=== PATIENT | male | born 1995 | race Caucasian/White ===

== ENCOUNTER 2017-04-07 10:34 | Emergency (ER) | payer BC, OTHER ==
--- NOTE | 2017-04-07 11:23 | ERPHSYRPT ---
- History of Present Illness Time Seen by Provider: 04/07/17 11:07 Source: patient Exam Limitations: no limitations Physician History: The patient is a 22-year-old male brought in by the [employer] after being informed that he had posted on [employer] images of him putting a loaded gun to his head. The patient states it was a stupid thing to do but he was not wanting to kill himself. This series of pictures clearly shows a gun was loaded and he was also showing the bullets and other pictures. He did not have his finger on the trigger. When asked if he is ever wanted to kill himself, he said he has never had any specific plan. He wasn't sure when he posted the pictures, but he thought it was 1 or 2 months ago. He was not sure if he had been consuming alcohol when he took the pictures. He does drink alcohol. He states he does not use street drugs. He says he does own a handgun. He used to parmar as a young adult. He removed a gun from his possession while his grandfather was ill with cancer. He was worried his grandfather would take his gun and kill himself with it. His grandfather last July of cancer. 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 He failed a course this semester and is upset about it. He will need to wait here before retaking the course. He was in his final semester. He has no significant past medical history. He denies depression. He takes no prescribed medicines. He had anal surgery as an . Timing/Duration: today Severity of Symptoms-Max: mild Severity of Symptoms-Current: mild Context related to: other (Face book posting) Suicidal thoughts: gesture Associated Symptoms: denies symptoms Previous symptoms: no prior history Allergies/Adverse Reactions: No Known Drug Allergies Allergy (Verified 04/07/17 10:39) Home Medications: No Home Meds 1 ea [facility] UD 04/07/17 [History] - Past Medical History Pertinent Past Medical History: No - Past Surgical History Past Surgical History: No Other Surgical History: Anal Reconstruction at - Social History Smoking Status: Never smoker Exposure to second hand smoke: No Drug Use: none Patient Lives Alone: No - Review of Systems Constitutional: No Fever, No Chills Eyes: No Symptoms Ears, Nose, & Throat: No Symptoms Respiratory: No Cough, No Dyspnea Cardiac: No Chest Pain, No Edema, No Syncope Abdominal/Gastrointestinal: No Abdominal Pain, No Nausea, No Vomiting, No Diarrhea Genitourinary Symptoms: No Dysuria Musculoskeletal: No Back Pain, No Neck Pain Skin: No Rash Neurological: No Dizziness, No Focal Weakness, No Sensory Changes Psychological: No Symptoms Endocrine: No Symptoms Hematologic/Lymphatic: No Symptoms Immunological/Allergic: No Symptoms All Other Systems: Reviewed and Negative - Nursing Vital Signs Nursing Vital Signs: Initial Vital Signs Temperature 98.1 F Temperature Source Oral Pulse Rate 110 Respiratory Rate 20 Blood Pressure [Right Arm] 116/67 Pain Intensity 0 - Physical Exam General Appearance: no apparent distress Eyes, Ears, Nose, Throat Exam: normal ENT inspection, moist mucous membranes Neck Exam: normal inspection, non-tender, supple Respiratory Exam: normal breath sounds, lungs clear, No respiratory distress Cardiovascular Exam: regular rate/rhythm, No edema Gastrointestinal/Abdominal Exam: soft Extremities Exam: normal inspection, normal range of motion, No evidence of injury, No edema Current Suicidality: denies suicide plan Neurological Exam: alert, 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, oriented x 3 Appearance: appropriate appearance Behavior/Eye Contact/Speech: alert & cooperative Thoughts/Hallucinations: normal thought pattern Skin Exam: normal color, warm, dry, No rash SpO2 Interpretation: normal Oxygen Delivery: Room Air Ordered Tests: Active Orders 24 hr Category Date Time Status Psychiatric Evaluation STAT Care 04/07/17 11:31 Active Regular Diet Diet 04/07/17 Dinner Active ACETAMINOPHEN Stat Lab 04/07/17 11:10 Completed CBC W DIFF Stat Lab 04/07/17 11:10 Completed CMP Stat Lab 04/07/17 11:10 Completed Ethyl Alcohol,Urine Stat Lab 04/07/17 11:31 Completed SALICYLATE Stat Lab 04/07/17 11:10 Completed TSH [TSH, 3RD Generation] Stat Lab 04/07/17 11:10 Completed UA Stat Lab 04/07/17 11:15 Completed Urine Triage Profile Stat Lab 04/07/17 11:10 Completed Lab/Rad Data: Laboratory Result Diagrams 04/07/17 11:10 04/07/17 11:10 Laboratory Results 04/07/17 04/07/17 04/07/17 Range/Units 11:31 11:15 11:10 WBC 9.0 (4.0-10.5) K/mm3 RBC 5.50 (4.1-5.6) M/mm3 Hgb 16.3 (12.5-18.0) gm/dl Hct 46.6 (42-50) % MCV 84.7 (78-100) fl MCH 29.6 (26-32) pg MCHC 35.0 (32-36) g/dl RDW 12.4 (11.5-14.0) % Plt Count 200 (150-450) K/mm3 MPV 9.8 H (6-9.5) fl Gran % 82.1 H (36.0-66.0) % Lymphocytes % 9.6 L (24.0-44.0) % Monocytes % 7.9 (0.0-12.0) % Eosinophils % 0.3 (0.00-5.0) % Basophils % 0.1 (0.0-0.4) % Basophils # 0.01 (0-0.4) Sodium (136-145) mEq/L Potassium (3.5-5.1) mEq/L Chloride (98-107) mEq/L Carbon Dioxide (21-32) mEq/L Anion Gap (5-15) MEQ/L BUN (9-20) mg/dL Creatinine (0.55-1.30) mg/dl Estimated GFR ML/MIN Glucose (70-110) MG/DL Calcium (8.5-10.1) mg/dL Total Bilirubin (0.2-1.0) mg/dL AST (15-37) U/L ALT (12-78) U/L Alkaline Phosphatase (46-116) U/L Serum Total Protein (6.4-8.2) gm/dL Albumin (3.4-5.0) g/dL TSH 3rd Generation (0.358-3.740) mIU/L Ur Collection Type VOID Urine Color YELLOW (YELLOW) Urine Appearance CLEAR (CLEAR) Urine pH 6.5 6.5 (5-6) Ur Specific [place] 1.015 (1.005-1.025) Urine Protein NEGATIVE (Negative) Urine Glucose (UA) NEGATIVE (NEGATIVE) mg/dL Urine Ketones NEGATIVE (NEGATIVE) Urine Nitrite NEGATIVE (NEGATIVE) Urine Bilirubin NEGATIVE (NEGATIVE) Urine Urobilinogen 0.2 (0-1) mg/dL Urine WBC (Auto) NEGATIVE (NEGATIVE) Urine RBC (Auto) NEGATIVE (0-5) Joseph/ul Salicylates (2.8-20.0) mg/dl Urine Opiates Level (NEGATIVE) Ur Methadone (NEGATIVE) Acetaminophen (10-30) ug/ml Urine Barbiturates (NEGATIVE) Ur Phencyclidine (PCP) (NEGATIVE) Urine Amphetamine (NEGATIVE) U Benzodiazepine Level (NEGATIVE) Urine Cocaine (NEGATIVE) Urine Marijuana (THC) (NEGATIVE) Urine Ethyl Alcohol 3 (0.00-20) mg/dl Specimen Received 04/07/17 111 04/07/17 04/07/17 04/07/17 Range/Units 11:10 11:10 11:10 WBC (4.0-10.5) K/mm3 RBC (4.1-5.6) M/mm3 Hgb (12.5-18.0) gm/dl Hct (42-50) % MCV (78-100) fl MCH (26-32) pg MCHC (32-36) g/dl RDW (11.5-14.0) % Plt Count (150-450) K/mm3 MPV (6-9.5) fl Gran % (36.0-66.0) % Lymphocytes % (24.0-44.0) % Monocytes % (0.0-12.0) % Eosinophils % (0.00-5.0) % Basophils % (0.0-0.4) % Basophils # (0-0.4) Sodium 136 (136-145) mEq/L Potassium 3.6 (3.5-5.1) mEq/L Chloride 101 (98-107) mEq/L Carbon Dioxide 28.5 (21-32) mEq/L Anion Gap 9.8 (5-15) MEQ/L BUN 20 (9-20) mg/dL Creatinine 1.35 H (0.55-1.30) mg/dl Estimated GFR > 60 ML/MIN Glucose 115 H (70-110) MG/DL Calcium 9.5 (8.5-10.1) mg/dL Total Bilirubin 0.6 (0.2-1.0) mg/dL AST 36 (15-37) U/L ALT 36 (12-78) U/L Alkaline Phosphatase 63 (46-116) U/L Serum Total Protein 7.7 (6.4-8.2) gm/dL Albumin 4.2 (3.4-5.0) g/dL TSH 3rd Generation 3.591 (0.358-3.740) mIU/L Ur Collection Type Urine Color (YELLOW) Urine Appearance (CLEAR) Urine pH (5-6) Ur Specific [place] (1.005-1.025) Urine Protein (Negative) Urine Glucose (UA) (NEGATIVE) mg/dL Urine Ketones (NEGATIVE) Urine Nitrite (NEGATIVE) Urine Bilirubin (NEGATIVE) Urine Urobilinogen (0-1) mg/dL Urine WBC (Auto) (NEGATIVE) Urine RBC (Auto) (0-5) Joseph/ul Salicylates < 2.8 L (2.8-20.0) mg/dl Urine Opiates Level NEG. (NEGATIVE) Ur Methadone NEG. (NEGATIVE) Acetaminophen < 2.0 L (10-30) ug/ml Urine Barbiturates NEG. (NEGATIVE) Ur Phencyclidine (PCP) NEG. (NEGATIVE) Urine Amphetamine NEG. (NEGATIVE) U Benzodiazepine Level NEG. (NEGATIVE) Urine Cocaine NEG. (NEGATIVE) Urine Marijuana (THC) NEG. (NEGATIVE) Urine Ethyl Alcohol (0.00-20) mg/dl Specimen Received - Progress Progress: unchanged Progress Note: 04/07/17 13:36 [facility] worker arrives to evaluate the pt. 04/07/17 16:55 Ioana Bassett from the [facility] interviews the patient and presents her findings to Dr. Regan who states the patient has not met criteria for inpatient admission. The recommendations are for outpatient therapy and to have begins removed from the home and the family should continue to monitor the patient for any other symptoms and to act accordingly. Counseled pt/family regarding: lab results, diagnosis, need for follow-up - Departure Time of Disposition: 16:58 Departure Disposition: Home Clinical Impression: Behavioral problems Condition: Stable Critical Care Time: No Additional Instructions: You have been evaluated both by [facility] emergency room and by the [facility]. You are to follow-up as an outpatient at the [facility]. All of your guns are to be removed from your home until further notice.
[2017-04-07 11:35] LABS: Collection Type VOID
[2017-04-07 11:36] LABS: COMPLETE URINE MICROSCOPIC? NO; Ph 6.5 (5-6)
[2017-04-07 11:42] LABS: BASOPHIL % 0.1 % (0.0-0.4); Eosinophil % 0.3 % (0.00-5.0); Granulocytes % 82.1 % (36.0-66.0); Lymphocytes % 9.6 % (24.0-44.0); Mean Cell Volume 84.7 fl (78-100); Mean Corpuscular Hemoglobin 29.6 pg (26-32); Mean Platelet Volume 9.8 fl (6-9.5); Monocytes % 7.9 % (0.0-12.0); Platelet Count 200 K/mm3 (150-450); Red Cell Distribution Width 12.4 % (11.5-14.0)
[2017-04-07 12:08] LABS: ALBUMIN 4.2 g/dL (3.4-5.0); ALKALINE PHOSPHATASE 63 U/L (46-116); ANION GAP 9.8 MEQ/L (5-15); BILIRUBIN,TOTAL 0.6 mg/dL (0.2-1.0); BLOOD UREA NITROGEN 20 mg/dL (9-20); CHLORIDE 101 mEq/L (98-107); Carbon Dioxide 28.5 mEq/L (21-32); Glucose 115 MG/DL (70-110); Potassium 3.6 mEq/L (3.5-5.1); SGOT/AST 36 U/L (15-37); SGPT/ALT 36 U/L (12-78); SODIUM 136 mEq/L (136-145); Total Protein 7.7 gm/dL (6.4-8.2)
[2017-04-07 12:09] LABS: ACETAMINOPHEN < 2.0 ug/ml (10-30)
[2017-04-07 17:01] VITALS: BP 132/70; PULSE 91; O2SAT 96
== END 2017-04-07 17:08 | disposition home or self-care (01) ==
LOC: ED 10:34
DX: R45.851 Suicidal ideations (principal)
CPT/HCPCS: 36415; 80053; 80307; 80320; 81002; 83986; 84443; 85025; 90791; 99283; 99285; G0481; Q3014